=== PATIENT | male | born 1955 | race Caucasian/White ===

== ENCOUNTER → 2018-03-27 06:02 | Outpatient (CLI) | payer BC, SELFPAY ==
[2018-03-27 07:33] LABS: BUN 19 mg/dL (7-18); Creatinine, Serum 0.81 mg/dL (0.70-1.30); Glucose 97 mg/dL (74-106)
[2018-03-27 07:34] LABS: ALB/GLOB Ratio 0.9 RATIO (0.9-2.4); AST(SGOT) 16 U/L (15-37); Alanine Aminotransfer ALT/SGPT 33 U/L (16-61); Albumin, Serum 3.3 g/dL (3.2-5.0); Alkaline Phosphatase 74 U/L (45-117); Anion Gap 9 (5-15); BUN/Creat Ratio 23.4 RATIO (10-20); Calcium,Total 8.6 mg/dL (8.5-10.1); Chloride 104 mmol/L (98-107); Cholesterol 188 mg/dL (200); EST Glomerular Filtration Rate 102 mL/min (>60); Est Glom Filt Rate - Afr Amer 124 mL/min (>60); Globulin 3.8 g/dL (2.2-4.2); High Density Lipoprotein 40 mg/dL; Potassium 3.8 mmol/L (3.5-5.1); Protein, Total 7.1 g/dL (6.4-8.2); Sodium Level 141 mmol/L (136-145); T4 Free Direct 1.72 ng/dL (0.76-1.46); Thyroid Stim Hormone (TSH) 3.19 uIU/mL (0.358-3.74); Triglycerides 333 mg/dL; Very Low Density Lipoprotein 67 mg/dL (5-40)
== END ==
PROVIDERS: Family Provider Family Medicine; PCP Family Medicine; Visit Provider Family Medicine
DX: I10 Essential (primary) hypertension (principal); R94.6 Abnormal results of thyroid function studies
CPT/HCPCS: 36415; 80053; 80061; 84439; 84443

== ENCOUNTER → 2018-09-20 06:13 | Outpatient (CLI) | payer BC, SELFPAY ==
[2018-09-20 06:54] LABS: Absolute Lymphocyte Count 2.19 X10^3/ul (0.83-4.51); Basophil# 0.02 X10^3/uL; Basophil% 0.3 % (0-1); Eosinophil# 0.14 X10^3/uL; Eosinophils% 2.4 % (0-5); Hematocrit 39.6 % (40-54); Hemoglobin 12.6 g/dl (13.0-16.5); Lymphocyte # 2.19 X10^3/ul (4.0); Lymphocyte % 37.1 % (19-41); Mean Corp Hgb Conc 31.8 g/gl (32-36); Mean Corpuscular Hgb 28.8 pg (27.0-32.0); Mean Corpuscular Volume 90.4 fL (80-94); Mean Platelet Vol. 10.2 fl (6.2-12.0); Monocyte% 10.2 % (0-10); Neutrophil # 2.96 X10^3/uL (2.7-7.7); Platelet Count 209 K/mm3 (150-450); RBC Distribution Width SD 49.8 fl (35.1-43.9); Red Blood Count 4.38 M/mm3 (4.6-6.2); White Blood Count 5.9 K/mm3 (4.4-11.0)
[2018-09-20 06:56] LABS: POSITIVE COUNT NO; POSITIVE DIFFERENTIAL NO; POSITIVE MORPHOLOGY NO
[2018-09-20 07:12] LABS: Erythrocyte Sedimentation Rate 21 mm/hr (0-20)
[2018-09-20 07:30] LABS: ALB/GLOB Ratio 0.8 RATIO (0.9-2.4); AST(SGOT) 16 U/L (15-37); Alanine Aminotransfer ALT/SGPT 25 U/L (16-61); Alkaline Phosphatase 89 U/L (45-117); Anion Gap 5 (5-15); BUN 15 mg/dL (7-18); BUN/Creat Ratio 16.9 RATIO (10-20); Calcium,Total 8.5 mg/dL (8.5-10.1); Chloride 106 mmol/L (98-107); Creatinine, Serum 0.89 mg/dL (0.70-1.30); EST Glomerular Filtration Rate 92 mL/min (>60); Est Glom Filt Rate - Afr Amer 111 mL/min (>60); Free T3 3.1 pg/mL (2.18-3.98); Globulin 3.8 g/dL (2.2-4.2); Glucose 112 mg/dL (74-106); Potassium 3.9 mmol/L (3.5-5.1); Protein, Total 6.8 g/dL (6.4-8.2); Sodium Level 139 mmol/L (136-145); T4 Free Direct 1.78 ng/dL (0.76-1.46); Thyroid Stim Hormone (TSH) 3.73 uIU/mL (0.358-3.74)
--- NOTE | 2018-09-20 10:47 | STRESSREP_ITS ---
Stress Test Report Exercise myocardial perfusion stress test. 63-year-old man with a history of chest pain. Stress protocol: Resting EKG demonstrates normal sinus rhythm with a rate of 66 bpm normal intervals are noted. The patient exercised according to regular Livan protocol for total duration of 4 minutes. The maximum heart rate attained was 155 bpm which was 98% of maximum predicted heart rate the maximum workload was 5.8 metabolic equivalents. The patient maintained sinus rhythm throughout the recording. At rest there were no ST or T wave changes noted suggest ischemia peak exercise upsloping ST changes were noted which were less than 1 mm we did not be the criteria for ischemia. No chest pain was noted the test was terminated due to shortness of breath. The resting blood pressure 158/86 with a peak blood pressure 190/70 mmHg. Myocardial perfusion protocol. 15.0 mCi of technetium 99m sestamibi was injected at rest. The patient ex ercised according to regular Livan protocol for 4 minutes and at peak exercise 44.9 mCi of technetium 99m sestamibi was injected stress images were obtained stress and rest images were reconstructed and compared in the short axis vertical long and horizontal long axis. Gated images were also obtained Perfusion SPECT analysis: Review of the stress images demonstrate normal uptake of tracer noted in all areas of the myocardium. The resting images similarly demonstrate normal uptake of tracer noted in all areas of the myocardium. No obvious areas of reversibility are noted suggest ischemia no previous infarct is noted. Gated SPECT analysis: The gated ejection fraction is noted to be 62%. Conclusion: Normal exercise myocardial perfusion stress test at a low to moderate workload. Moderate functional aerobic impairment. The workload may affect sensitivity for detection of ischemia.
== END ==
PROVIDERS: Family Provider Family Medicine; PCP Family Medicine; Referring Provider Family Medicine; Visit Provider Family Medicine
DX: R07.9 Chest pain, unspecified (principal); R94.6 Abnormal results of thyroid function studies
CPT/HCPCS: 36415; 78452; 80053; 84439; 84443; 84445; 84481; 85025; 85652; 93017; A9500; A4216

== ENCOUNTER → 2018-10-03 16:25 | Outpatient (CLI) | payer BC, SELFPAY ==
[2018-10-05 11:45] LABS: Thyroid Peroxidase AB 9 IU/mL (0-34)
== END ==
PROVIDERS: Family Provider Family Medicine; PCP Family Medicine; Referring Provider Internal Medicine Endocrinology, Diabetes & Metabolism; Visit Provider Internal Medicine Endocrinology, Diabetes & Metabolism
DX: R94.6 Abnormal results of thyroid function studies (principal)
CPT/HCPCS: 86376

== ENCOUNTER → 2019-11-25 11:35 | Outpatient (CLI) | payer BC, SELFPAY ==
--- NOTE | 2019-11-25 11:40 | RAD_ITS ---
STUDY: X-RAY CHEST REASON FOR EXAM: Male, 64 years old. dyspnea on exertion TECHNIQUE: PA and lateral views of the chest. COMPARISON: None. FINDINGS: The lungs are clear and expanded. There is no demonstrated pleural abnormality. Normal size heart. Normal mediastinum and suzanne. Normal visualized pulmonary arteries. Normal visualized aortic arch and descending thoracic aorta. There are diffuse degenerative changes of the visualized thoracic spine. Normal visualized ribs, clavicles, and shoulders. There is no demonstrated abnormality of the visualized soft tissue structures of the upper abdomen. RAD/Chest PA and Lateral IMPRESSION: No acute cardiopulmonary process. Electronically Signed: Leland Keene MD (Brooks) at 8:07 EST , Service support ,
[2019-11-25 11:49] LABS: Bacteria 0 SEEN /hpf (None Seen); Mucous, Urine 0 SEEN /hpf (<or=2+); Red Blood Cells-Urine 0 SEEN /hpf (0-5); Squamous Epithelial Cells - UA 0 SEEN /hpf (0-5); White Blood Cells 0 SEEN /hpf (0-5)
[2019-11-25 14:07] LABS: Color, Urine Yellow (Yellow); Glucose, Dipstick Normal (Normal); Ketone-Dipstick Negative (Negative); Leukocyte Esterase-Dipstick Negative /ul (Negative); Nitrite-Dipstick Negative (Negative); Occult Blood-Urine Negative /ul (Negative); Protein-Dipstick Negative (Negative); Urine Bilirubin Dipstick Negative (Negative); Urine Clarity Sl. Cloudy (Clear); Urine Urobilinogen Normal (Normal)
[2019-11-25 14:08] LABS: Absolute Lymphocyte Count 1.64 X10^3/uL (0.83-4.51); Absolute Neutrophil Count 3.7 X10^3/uL (2.0-7.7); Basophil# 0.04 X10^3/uL; Basophil% 0.7 % (0-1); Eosinophil# 0.15 X10^3/uL; Eosinophils% 2.5 % (0-5); Hematocrit 41.8 % (40-54); Hemoglobin 13.7 g/dL (13.0-16.5); Lymphocyte # 1.64 X10^3/ul (4.0); Mean Corp Hgb Conc 32.8 g/dL (32-36); Mean Corpuscular Hgb 30.4 pg (27.0-32.0); Mean Corpuscular Volume 92.7 fL (80-94); Mean Platelet Vol. 9.9 fl (6.2-12.0); Monocyte% 8.2 % (0-10); NRBC Flagged by Analyzer 0 % (0-5); Neutrophil # 3.74 X10^3/uL (2.7-7.7); Neutrophil % 61.4 % (47-70); Platelet Count 220 K/mm3 (150-450); RBC Distribution Width CV 13.2 % (11.6-14.6); RBC Distribution Width SD 45.1 fl (35.1-43.9); Red Blood Count 4.51 M/mm3 (4.6-6.2); White Blood Count 6.1 K/mm3 (4.4-11.0)
[2019-11-25 14:41] LABS: ALB/GLOB Ratio 0.8 RATIO (0.9-2.4); AST(SGOT) 20 U/L (15-37); Alanine Aminotransfer ALT/SGPT 42 U/L (16-61); Albumin, Serum 3.3 g/dL (3.2-5.0); Alkaline Phosphatase 74 U/L (45-117); Anion Gap 4 (5-15); BUN 16 mg/dL (7-18); BUN/Creat Ratio 18.5 RATIO (10-20); Calcium,Total 9.1 mg/dL (8.5-10.1); Chloride 104 mmol/L (98-107); Creatinine, Serum 0.86 mg/dL (0.70-1.30); EST Glomerular Filtration Rate 95 mL/min (>60); Est Glom Filt Rate - Afr Amer 115 mL/min (>60); Glucose 97 mg/dL (74-106); Potassium 3.9 mmol/L (3.5-5.1); Protein, Total 7.3 g/dL (6.4-8.2); Sodium Level 136 mmol/L (136-145)
== END ==
PROVIDERS: Family Provider Family Medicine; PCP Family Medicine; Referring Provider Family Medicine; Visit Provider Family Medicine
DX: R06.09 Other forms of dyspnea (principal); R31.29 Other microscopic hematuria; I10 Essential (primary) hypertension
CPT/HCPCS: 36415; 71046; 80053; 81001; 84153; 85025; 87086; G0103

== ENCOUNTER 2020-07-30 19:00 | Emergency (ER) | payer BC, SELFPAY ==
[2020-07-30 19:01] VITALS: BP 152/81; PULSE 94; PULSE 96; RESP 18; RESP 19; TEMP 36.7; O2SAT 100; O2SAT 99; BMI 41.9
[2020-07-30 19:06] VITALS: O2SAT 98
[2020-07-30] MEDS: DiphenhydrAMINE 50 MG/ML Syringe 25 MG IV (19:37)
[2020-07-30] MEDS: MethylPREDNISolone 125 MG/2 ML Vial IV (19:37)
[2020-07-30] MEDS: Famotidine 200 MG/20 ML MDV 20 MG in 0.9% Normal Saline (Pres. free 8 ML 300 MG IV (19:42)
--- NOTE | 2020-07-30 20:04 | ED.VIS.GEN ---
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 He rapidly developed diffuse hives shortness of breath and facial swelling. EMS arrived and administered IV Benadryl and a EpiPen. Patient states he is improving. States that he has never had a reaction like this before and was stung earlier in the summer without significant reaction. <RaymondRoberto - Last Filed: 07/30/20 20:48> <Candi Zapata - Last Filed: 07/31/20 00:04> Chief Complaint: Shortness of Breath Past Medical History Smoking Status: Never smoker <Roberto Andrade - Last Filed: 07/30/20 20:48> <Candi Zapata - Last Filed: 07/31/20 00:04> - Allergies and Home Meds Allergies/Adverse Reactions: Allergies cefazolin [From [facility]] Allergy (Verified 07/30/20 19:06) Swelling Primary Care Physician: Bull Martinez MD [Primary Care Provider] - As Needed Review of Systems General: Denies: Chills, Fever, Sweats Eyes: Reports: -. Denies: Visual changes - bilaterally, Diplopia ENT: Reports: - - Facial and ear swelling. Denies: Rhinorrhea, Sore throat Cardiovascular: Denies: Chest pain, Palpitations Respiratory: Reports: Dyspnea. Denies: Cough, Dyspnea on exertion Gastrointestinal: Denies: Abdominal pain, Nausea, Vomiting, Diarrhea, Melena, Hematochezia Genitourinary: Denies: Dysuria, Hematuria, Frequency Musculoskeletal: Denies: Back pain, Extremity Pain Skin: Reports: - - Hives. Denies: Rash, Wounds Neurological: Denies: Headache, Weakness, Numbness <[place] Rays[place]Roberto - Last Filed: 07/30/20 20:48> Physical Exam Vital Signs/Narrative: Vital Signs Temp Pulse Resp BP Pulse Ox 07/30/20 19:01 98.1 F 96 19 H 152/81 H 99 Inital Vital Signs reviewed: Yes General: Well nourished, Well developed, No Acute Distress Head: Normocephalic, Atraumatic Eyes: Perrl, EOMI ENT: Moist mucous membranes, No rhinorrhea, - - Facial ear lower lip swelling Neck: Supple, Nontender Cardiovascular: Regular rate, Regular rhythm, No murmurs Respiratory: No distress, CTA bilaterally, Chest nontender Abdomen: Soft, Nontender, Nondistended, Normal bowel sounds Back: Nontender, Normal Inspection Extremities: Nontender, No edema Skin: Normal color, No rash, - - She has diffuse hives over his body. There appears to be a sting wound left upper posterior arm without a stinger. Similar wound on the hand on the left. Neurological: Alert, Oriented x3, Cranial nerves II-XII grossly intact, Normal Strength, Normal Sensation Psychological: Normal affect, Normal Mood <Roberto Andrade - Last Filed: 07/30/20 20:48> Vital Signs/Narrative: Vital Signs Pulse Resp BP Pulse Ox 07/30/20 23:10 85 16 168/97 H 95 07/30/20 20:30 84 16 141/84 H 95 <Candi Zapata - Last Filed: 07/31/20 00:04> Diagnostic/Tx/Re-eval - Medical Decision Making Patient had already received epinephrine and Benadryl. He received additional dose of Benadryl, Solu-Medrol, and Pepcid. He was observed. Care of the patient will be signed to the oncoming physician. If the patient continues to do well he will be discharged home with prescription for EpiPen and prednisone with instructions to take additional Benadryl and Pepcid. <Roberto Andrade - Last Filed: 07/30/20 20:48> - Medical Decision Making Patient was signed out to me pending repeat evaluation at midnight. At this time patient is alert sitting on the side the bed. Edema is improved. Patient has no respiratory complaints. He will be discharged as per Dr. Bajwa's instructions. <Candi Zapata - Last Filed: 07/31/20 00:04> ED Disposition <Roberto Andrade - Last Filed: 07/30/20 20:48> <Candi Zapata - Last Filed: 07/31/20 00:04> - Plan for ED Patient: Disposition: Home or Assisted Living Diagnosis: Bee sting-induced anaphylaxis Prescriptions: Prednisone [Deltasone] 60 mg PO DAILY #12 tab Prescription Printed Epinephrine [Epipen] 0.3 mg IJ X1 PRN #2 auto.injct PRN Reason: Anaphylaxis Prescription Printed Referrals: Bull Martinez MD [Primary Care Provider] - As Needed Additional Instructions: You have received a prescription for epinephrine if you would have another anaphylactic reaction. Please take at least 25 mg of Benadryl every 6 hours for the next 3 days. I would also recommend taking Pepcid 20 mg twice a day for the next 3 days. You have also received a prescription for prednisone.
[2020-07-30 20:30] VITALS: BP 141/84; PULSE 84; RESP 16; O2SAT 95
[2020-07-30 23:10] VITALS: BP 168/97; PULSE 85; RESP 16; O2SAT 95
[2020-07-31 00:07] VITALS: BP 172/93; PULSE 84; RESP 16; O2SAT 94
== END 2020-07-31 00:11 | disposition home or self-care (01) ==
PROVIDERS: Emergency Provider Emergency Medicine; PCP Family Medicine
DX: T63.441A Toxic effect of venom of bees, accidental (unintentional), initial encounter (principal); T78.2XXA Anaphylactic shock, unspecified, initial encounter; Y92.9 Unspecified place or not applicable
CPT/HCPCS: 96374; 96375; 99285; A4216; J3490

== ENCOUNTER → 2020-11-09 09:17 | Outpatient (CLI) | payer BC, SELFPAY ==
--- NOTE | 2020-11-09 09:20 | RAD_ITS ---
STUDY: X-RAY CHEST REASON FOR EXAM: Male, 65 years old patient with chronic cough TECHNIQUE: PA and lateral views of the chest. COMPARISON: 11/25/2019. FINDINGS: The lungs are hyperexpanded. There are prominent bronchovascular markings in both lungs. There is no demonstrated pleural abnormality. There is borderline cardiomegaly. Normal mediastinum and suzanne. There is prominence of the pulmonary hilar arteries without peripheral pulmonary vascular congestion, suggesting pulmonary hypertension. Normal visualized aortic arch and descending thoracic aorta. There are diffuse degenerative changes of the visualized thoracic spine. Normal visualized ribs, clavicles, and shoulders. There is no demonstrated abnormality of the visualized soft tissue structures of the upper abdomen. RAD/Chest PA and Lateral IMPRESSION: No radiographic evidence of acute cardiopulmonary disease. Electronically Signed: Patti Diaz MD at 4:03 EST , Service support ,
[2020-11-10 07:31] LABS: SARS-COV-2 TOTAL ABS Nonreactive (Nonreactive)
== END ==
PROVIDERS: PCP Family Medicine; Referring Provider Family Medicine; Visit Provider Family Medicine
DX: J45.909 Unspecified asthma, uncomplicated (principal); Z20.828 Contact with and (suspected) exposure to other viral communicable diseases
CPT/HCPCS: 36415; 71046; 86769

== ENCOUNTER → 2021-01-26 13:01 | Outpatient (CLI) | payer MEDICARE, BC, SELFPAY ==
[2021-01-18 13:38] VITALS: BMI 41.9
== END ==
PROVIDERS: PCP Family Medicine; Visit Provider Internal Medicine Critical Care Medicine
DX: Z46.89 Encounter for fitting and adjustment of other specified devices (principal)

== ENCOUNTER → 2021-02-01 08:45 | Outpatient (CLI) | payer MEDICARE, BC, SELFPAY ==
[2021-01-18 13:38] VITALS: BMI 41.9
--- NOTE | 2021-02-01 13:16 | PFTCOMP ---
COMPLETE PULMONARY FUNCTION TEST INTERPRETATION Brief HPI: Patient is a 66 year old male, currently under the care of to Dr. Hutchison, who presents to [facility] for complete pulmonary function tests secondary to diagnosis of asthma. Respiratory therapist reports good effort and reproducible results. Interpretation: Forced expiration spirometry shows a moderately severe large airways obstructive ventilatory defect with an FEV1 of 51% predicted. There is no significant bronchodilator response by strict ATS criteria. Spirograms are of good quality and plateau slowly, indicating slowly emptying areas of the lungs. The respiratory flow volume loop shows decreased expiratory flow rates at all lung volumes consistent with airway obstruction. Lung volumes by body plethysmography show a normal total lung capacity at 7.83 L, 107% predicted. FRC and RV are elevated out of proportion. Lung volume measurements are consistent with air-trapping. Diffusion capacity by carbon monoxide is normal at 84% predicted. The airway resistance is elevated. No previous pulmonary function tests were available for review. Impression: Irreversible moderately severe large airways obstructive ventilatory defect resulting in air trapping
== END ==
PROVIDERS: PCP Family Medicine; Referring Provider Internal Medicine Critical Care Medicine; Visit Provider Internal Medicine Critical Care Medicine
DX: J45.909 Unspecified asthma, uncomplicated (principal)
CPT/HCPCS: 94060; 94726; 94729

== ENCOUNTER → 2021-02-03 12:43 | Outpatient (CLI) | payer MEDICARE, BC, SELFPAY ==
[2021-01-18 13:38] VITALS: BMI 41.9
[2021-02-03 13:09] VITALS: PULSE 103; PULSE 108; PULSE 110; PULSE 112; PULSE 113; PULSE 87; PULSE 97; O2SAT 91; O2SAT 93; O2SAT 94; O2SAT 95
--- NOTE | 2021-02-04 05:47 | PCM.PSN.6M ---
PSN 6 Minute Walk Test - 6 Minute Walk Test 6 Minute Walk Test: 6 Minute Walk Test PSN:6-Minute Walk Test Start: 02/03/21 13:09 Freq: Status: Active Protocol: RESP.6MINW Document 02/03/21 13:09 [facility] (Rec: 02/03/21 13:12 [facility] [id number]) 6 Minute Walk Test Date Performed 02/03/21 Time Performed 12:45 Height 6 ft 1 in Weight: 136.078 kg Weight in Pounds 300.[address]: Dr Hutchison Assistive device used: None Pre-test Oxygen Delivery Method Room Air Pulse Ox (%) 94 Pulse Rate (60-100 beats/min) 87 Dyspnea Christian Scale (0-10) 0 Exertion Christian Scale (6-20) 6 1st minute Oxygen Delivery Method Room Air Pulse Ox (%) 93 Pulse Rate (60-100 beats/min) 108 H 2nd minute Oxygen Delivery Method Room Air Pulse Ox (%) 91 Pulse Rate (60-100 beats/min) 110 H 3rd minute Oxygen Delivery Method Room Air Pulse Ox (%) 91 Pulse Rate (60-100 beats/min) 113 H 4th minute Oxygen Delivery Method Room Air Pulse Ox (%) 91 Pulse Rate (60-100 beats/min) 112 H 5th minute Oxygen Delivery Method Room Air Pulse Ox (%) 91 Pulse Rate (60-100 beats/min) 103 H 6th minute Oxygen Delivery Method Room Air Pulse Ox (%) 91 Pulse Rate (60-100 beats/min) 112 H Dyspnea Christian Scale (0-10) 1 Exertion Christian Scale (6-20) 11 Post-test Oxygen Delivery Method Room Air Pulse Ox (%) 95 Pulse Rate (60-100 beats/min) 97 Full Laps Walked 20 Partial Lap, Number of Tiles Walked 52 Total Distance Walked (ft) 1232 - Interpretation Interpretation: The patient was able to ambulate 1232 feet over the course of 6 minutes on room air with no assistive devices or breaks. The patient did desaturate as low as 91% and had significant tachycardia as high as 113 bpm. These findings are consistent with a cardiopulmonary limitation to exercise tolerance. - Recommendations Recommendations: No supplemental oxygen is indicated at this time. However, patient will need to be followed closely given level of desaturation.
== END ==
PROVIDERS: PCP Family Medicine; Referring Provider Internal Medicine Critical Care Medicine; Visit Provider Internal Medicine Critical Care Medicine
DX: J45.909 Unspecified asthma, uncomplicated (principal)
CPT/HCPCS: 94618

== ENCOUNTER → 2021-02-08 11:48 | Outpatient (CLI) | payer MEDICARE, BC, SELFPAY ==
[2021-01-18 13:38] VITALS: BMI 41.9
[2021-02-08 15:27] LABS: ALB/GLOB Ratio 0.9 RATIO (0.9-2.4); AST(SGOT) 31 U/L (15-37); Alanine Aminotransfer ALT/SGPT 56 U/L (16-61); Albumin, Serum 3.5 g/dL (3.2-5.0); Alkaline Phosphatase 72 U/L (45-117); Anion Gap 5 (5-15); BUN 15 mg/dL (7-18); Chloride 99 mmol/L (98-107); Cholesterol 229 mg/dL (200); Creatinine, Serum 0.88 mg/dL (0.70-1.30); EST Glomerular Filtration Rate 92 mL/min (>60); Est Glom Filt Rate - Afr Amer 112 mL/min (>60); Globulin 3.9 g/dL (2.2-4.2); Glucose 106 mg/dL (74-106); High Density Lipoprotein 72 mg/dL; Potassium 3.8 mmol/L (3.5-5.1); Protein, Total 7.4 g/dL (6.4-8.2); Sodium Level 135 mmol/L (136-145); Triglycerides 200 mg/dL; Very Low Density Lipoprotein 40 mg/dL (5-40)
== END ==
PROVIDERS: PCP Family Medicine; Visit Provider Family Medicine
DX: I10 Essential (primary) hypertension (principal); N40.0 Benign prostatic hyperplasia without lower urinary tract symptoms; Z12.5 Encounter for screening for malignant neoplasm of prostate
CPT/HCPCS: 36415; 80053; 80061; 84153; G0103

== ENCOUNTER → 2021-02-23 08:00 | Outpatient (CLI) | payer MEDICARE, BC, SELFPAY ==
[2021-01-18 13:38] VITALS: BMI 41.9
[2021-02-21 08:50] VITALS: BMI 42.2
--- NOTE | 2021-02-23 08:07 | AAAS_ITS ---
Reason For Study: Screening Aorta Measurements Aorta Doppler Measurements Proximal aorta measures2.09 x 2.06cm. in cross- Peak systolic flow velocities within the proximal sectional axis. aorta measure 131.1 cm/sec. Proximal aorta measures2.08cm. in longitudinal Peak systolic flow velocities within the mid aorta axis. measure 113 cm/sec. Mid aorta measures2.02 x 1.97cm. in cross- Peak systolic flow velocities within the distal sectional axis. aorta measure 144 cm/sec. Mid aorta measures2.03cm. in longitudinal axis. Distal aorta measures1.60 x 1.62cm. in cross- sectional axis. Distal aorta measures1.61cm. in longitudinal axis. Left Iliac Artery Left iliac artery measures 1.38 x 1.39 cm. in the cross-sectional axis. Left iliac artery measures 1.39 cm. in the longitudinal axis. Peak systolic velocity in the left iliac artery measures 149.1 cm/sec. Right Iliac Artery Right iliac artery measures 1.36 x 1.34 cm. in the cross-sectional axis. Right iliac artery measures 1.34 cm. in the longitudinal axis. Peak systolic velocity in the right iliac artery measures 112.9 cm/sec. Procedure Aorta IVC Iliac vasculature or bypass grafts 25084. Exam performed in department. VL/AAA Screening Interpretation Summary The dimensions of the intra-abdominal aorta are normal, without evidence of ane urysmal dilatation. The iliac arteries are also normal in size bilaterally. The intra-abdominal aor ta and iliac arteries are patent, demonstrating normal, pulsatile arterial flow and normal peak systo lic velocities. Ordering Physician: Bull Martinez Referring Physician: Bull Martinez Performed By: Cecelia Rasmussen RVT
== END ==
PROVIDERS: PCP Family Medicine; Referring Provider Family Medicine; Visit Provider Family Medicine
DX: Z00.00 Encounter for general adult medical examination without abnormal findings (principal); Z13.6 Encounter for screening for cardiovascular disorders
CPT/HCPCS: 76706

== ENCOUNTER → 2021-03-18 | Outpatient (CLI) | payer MEDICARE, BC, SELFPAY ==
[2021-02-21 08:50] VITALS: BMI 42.2
--- NOTE | 2021-03-17 | IMM_PTH ---
PATIENT: SHARA GA LOC: [facility] U#:[id number] AGE/SX: 66/M ROOM: RE03/18/[address]: Dr. Vincenzo Garcia MD : 1955 BED: DIS: 03/18/2021 SPEC #: [id number] RECD: 03/21/21 11:43 STATUS: SOURajendra REQ #: [id number] RAGINI: 03/17/21 00:[address]: Vincenzo Garcia DEPT: IMMUNOHISTOCHEMISTRY RECD BY: Yu Foley ENTERED: 03/21/21 11:45 SP TYPE: IMMUNO OTHR DR: Dr. Jignesh Martinez MD Tissues: A - PROSTATE RIGHT B - PROSTATE RIGHT C - PROSTATE RIGHT D - PROSTATE LEFT E - PROSTATE LEFT F - PROSTATE LEFT Procedures: 34BE12 (add) P40 (add) 34BE12 (initial) Comments: @ Specimen number changed from [id number] to [id number] @ on 03/21/21 at 1157 by RGOOD. PHYSICIAN & [address] [address] SPECIMEN INFORMATION: Tissue Source: A - Right apex, B - Right mid, C - Right base, D - Left apex, E - Left mid, F - Left base Clinical Info: R97.20 Specimen Number: [id number] CPT code: 78597, 72218 x11 METHODOLOGY: Deparaffinized sections of prefer/formalin-fixed tissue or PAP/DQ stained slides are incubated with monoclonal/polyclonal antibodies/oligonucleotide probes. Localization is made via biotin free immunoperoxidase method. Appropriate controls are performed and reacted as expected. Results on target cell population are indicated in the following table: RESULTS: ANTIBODY / CLONE RESULT Block A 34BE12 (34BE12) negative P40 (BC28) negative Block B 34BE12 (34BE12) negative P40 (BC28) negative Block C 34BE12 (34BE12) negative P40 (BC28) negative Block D 34BE12 (34BE12) negative P40 (BC28) negative Block E 34BE12 (34BE12) negative P40 (BC28) negative Block F 34BE12 (34BE12) negative P40 (BC28) negative These tests were developed and their performance characteristics determined by [facility]. They may not have been cleared or approved by the U.S. Food and Drug Administration. The FDA has determined that such clearance or approval is not necessary. The above immunohistochemical/dualISH markers are ordered and reviewed by the Pathologist. INTERPRETATION: A. Right prostate, apex, core biopsy: Adenocarcinoma. B. Right prostate, mid, core biopsy: Focal atypical small acinar proliferation (LIANET) C. Right prostate, base, core biopsy: Adenocarcinoma. D. Left prostate, apex, core biopsy: Adenocarcinoma. E. Left prostate, mid, core biopsy: Adenocarcinoma. F. Left prostate, base, core biopsy: Adenocarcinoma. SJ:wilber 03/24/2021
--- NOTE | 2021-03-17 16:30 | PROSBIL_PTH ---
PATIENT: SHARA GA LOC: [facility] U#:[id number] AGE/SX: 66/M ROOM: RE03/18/[address]: Dr. Vincenzo Garcia MD : 1955 BED: DIS: 03/18/2021 SPEC #: [id number] RECD: 03/17/21 16:48 STATUS: MADELIN REGianna #: [id number] RAGINI: 03/17/21 16:[address]: Vincenzo Garcia DEPT: SURGICAL PATHOLOGY RECD BY: Libby Washington ENTERED: 03/18/21 09:04 SP TYPE: PROST BX WILLIAM DR: Dr. Jignesh Martinez MD Tissues: A - PROSTATE RIGHT B - PROSTATE RIGHT C - PROSTATE RIGHT D - PROSTATE LEFT E - PROSTATE LEFT F - PROSTATE LEFT Procedures: PROSTATE BX HEADER OPERATION: Prostate biopsy PRE-OP DIAGNOSIS: R97.20 TISSUE SUBMITTED: A - Right apex, B - Right mid, C - Right base, D - Left apex, E - Left mid, F - Left base MICROSCOPIC DIAGNOSIS A. Right prostate, apex, core biopsy: Prostatic adenocarcinoma. Dallas grade: 3+3=6 Number of cores involved: 1/2 Proportion of tissue involved: 10-15% Perineural invasion: Not identified. Greatest tumor length: 0.8 cm, discontinuous See comment. B. Right prostate, mid, core biopsy: Focal atypical small acinar proliferation (LIANET). See comment. C. Right prostate, base, core biopsy: Prostatic adenocarcinoma. Maurisio grade: 3+3=6 Number of cores involved: 1/2 Proportion of tissue involved: <5% Perineural invasion: Not identified. Greatest tumor length: <0.1 cm See comment. D. Left prostate, apex, core biopsy: Prostatic adenocarcinoma. Dallas grade: 3+3=6 Number of cores involved: 2/2 Proportion of tissue involved: <5% Perineural invasion: Not identified. Greatest tumor length: 0.1 cm See comment. E. Left prostate, mid, core biopsy: Prostatic adenocarcinoma. Maurisio grade: 3+3=6 Number of cores involved: 2/2 Proportion of tissue involved: 5-10% Perineural invasion: Not identified. Greatest tumor length: 0.2 cm See comment. F. Left prostate, base, core biopsy: Prostatic adenocarcinoma. Dallas grade: 3+3=6 Number of cores involved: 2/2 Proportion of tissue involved: ~5% Perineural invasion: Present, focal. Greatest tumor length: 0.1 cm Focal high-grade prostatic intraepithelial neoplasia (HGPIN). See comment. SJ:wilber 03/21/2021 COMMENT A-F. Immunohistochemistry ([id number]) supports the above diagnosis. Case has been reviewed in consultation with Dr. Osorio who concurs with the above diagnosis. IDC:AM MICROSCOPIC DESCRIPTION Slides are reviewed. GROSS DESCRIPTION A - Received is one container designated prostate, right apex. The specimen consists of two elongated fragments of light munoz-white soft tissue each measuring 1.2 cm in length and 0.1 cm in diameter. The specimen is totally submitted in one cassette. B - Received is one container designated prostate, right mid. The specimen consists of two elongated fragments of light munoz-white soft tissue each measuring 0.5 cm in length and 0.1 cm in diameter. The specimen is totally submitted in one cassette. C - Received is one container designated prostate, right base. The specimen consists of two elongated fragments of light munoz-white soft tissue measuring 0.8 and 1.2 cm in length and 0.1 cm in diameter. The specimen is totally submitted in one cassette. D - Received is one container designated prostate, left apex. The specimen consists of two elongated fragments of light munoz-white soft tissue each measuring 1.2 cm in length and 0.1 cm in diameter. The specimen is totally submitted in one cassette. E - Received is one container designated prostate, left mid. The specimen consists of two elongated fragments of light munoz-white soft tissue each measuring 1.3 cm in length and 0.1 cm in diameter. The specimen is totally submitted in one cassette. F - Received is one container designated prostate, left base. The specimen consists of two elongated fragments of light munoz-white soft tissue each measuring 1.1 cm in length and 0.1 cm in diameter. The specimen is totally submitted in one cassette. / SJ:rg 03/18/21 TC:0 [facility]: [id number]
== END | disposition home or self-care (01) ==
LOC: LABSPEC 08:14
PROVIDERS: PCP Family Medicine; Visit Provider Urology
DX: R97.20 Elevated prostate specific antigen [PSA] (principal)
CPT/HCPCS: 88305; 88341; 88342; G0416

== ENCOUNTER 2021-04-29 06:30 | Day surgery (SDC) | payer MEDICARE, BC, SELFPAY ==
[2021-02-21 08:50] VITALS: BMI 42.2
[2021-04-29] MEDS: Lactated Ringers 1,000 ML 100 ML IV (06:50)
[2021-04-29 07:08] VITALS: BP 146/89; PULSE 73; RESP 16; TEMP 36.3; O2SAT 95; BMI 41.3
[2021-04-29 07:25] LABS: Bedside Glucose 120 mg/dL (70-110)
[2021-04-29] MEDS: Ciprofloxacin 400 MG/200 ML BAG 200 MG IV (07:48)
--- NOTE | 2021-04-29 08:08 | HP.PCM_ITS ---
HPI - General HPI Narrative SHARA GA, is a 66 M who presents for placement of gold markers and spacer gel matrix. [facility] Medical History (Updated 04/29/21 @ 08:[address] Vincenzo Garcia MD) Alcohol use Asthma Back pain Cancer CPAP (continuous positive airway pressure) dependence Diabetes Gastric reflux GERD (gastroesophageal reflux disease) High cholesterol History of edema History of hiatal hernia History of steroid therapy History of stress test HTN (hypertension) Hx of echocardiogram Injury of head and neck Loss of hearing Non-smoker LACIE (obstructive sleep apnea) Prostate disease Shortness of breath on exertion Home Medications lisinopril-hydrochlorothiazide 1 ea PO DAILY 11/01/16 [History Last Taken Unknown] epinephrine 0.3 mg IJ X1 PRN #2 auto.injct 07/30/20 [Rx Last Taken Unknown] albuterol sulfate 90 mcg/actuation aerosol inhaler 2 puff INHALATION Q6H PRN 12/28/20 [History Last Taken 04/29/21 05:00 2 PUFF] pantoprazole 20 mg tablet,delayed release 20 mg PO DAILY 12/28/20 [History Last Taken 04/29/21 05:00 20 MG] fluticasone 500 mcg-salmeterol 50 mcg/dose blistr powdr for inhalation 1 inh INHALATION BID #60 ea 04/07/21 [Rx Last Taken Unknown] Enzyme 365 1 cap PO/SL DAILY 04/21/21 [History Last Taken Unknown] amlodipine 5 mg PO DAILY 04/21/21 [History Last Taken 04/29/21 05:00 5 mg] tamsulosin 0.4 mg PO QHS 04/21/21 [History Last Taken Unknown] ciprofloxacin HCl [Cipro] 500 mg PO BID #14 tab 04/29/21 [Rx Last Taken Unknown] Allergy/AdvReac Type Severity Reaction Status Date / Time cefazolin [From [facility]] Allergy Swelling Verified 04/21/21 11:41 Family History Father Pulmonary emphysema Mother Pulmonary emphysema Surgical History (Updated 04/21/21 @ 11:55 by Ludy Payton) H/O knee surgery H/O shoulder surgery Hx of Achilles tendon repair Social History (Updated 02/21/21 @ 15:03 by Stacia Smith OPERATIONS ADVISOR, OPERATIONS ADVISOR-C) Smoking Status: Never smoker Vital Signs Vital Signs Vital Signs: 04/29/21 07:08 Temperature 97.4 F L Temperature Source Temporal Pulse Rate 73 Respiratory Rate 16 Respiratory Pattern Normal Blood Pressure 146/89 H Blood Pressure Mean 108 Blood Pressure Source Monitor Blood Pressure Position Sitting Blood Pressure Location Right Arm Pulse Ox 95 Oxygen Delivery Method Room Air Weight Weight: 142.1 kg Body Mass Index (BMI) 41.3 Physical Exam Const alert and oriented x3 General Appearance: cooperative HEENT normocephalic, head/scalp atraumatic, EAC's normal and TM's normal bilaterally Eyes PERRL and EOMs intact bilaterally Pupil: sluggish Neck no lymphadenopathy, supple and no JVD General: trachea midline Lymph Lymphatic: no lymphadenopathy noted, lymphedema and lymphadenopathy Resp normal respiratory effort, normal air movement and clear to auscultation bilaterally Cardio regular rate, regular rhythm and peripheral pulses 2+ throughout GI soft to palpation, non-tender and non-distended Extremity normal capillary refill and no clubbing, cyanosis or edema General Extremity: no tenderness to palpation of joints or extremities Skin no rashes or lesions noted General Skin Exam: turgor normal Lesions: no lesions Rashes: no rashes Neuro CN's II-XII intact bilaterally Speech: speech normal Motor Exam: strength 5/5 throughout; Negative for general weakness Psych thought process normal, cooperative and affect normal Appearance: appropriate Results Lab / Micro Data Labs: Laboratory Results - last 24 hr 04/29/21 07:16 POC Glucose 120 H Assessment & Plan Assessment/Plan (1) Prostate cancer: PLAN: Plan to place spacer markers and spacer organ gel matrix for prostate cancer treatment.
--- NOTE | 2021-04-29 08:08 | PCM.DC ---
Discharge Instructions Diet Discharge Diet: No restrictions Dressing / Incision Call your doctor if your incision/area has: Continuous Slow Oozing, Increased Pain/ Swelling, Increased Redness and Foul Smelling Discharge Call your doctor if you observe: Fever of 101 or Higher, Numbness or Tingling, Shortness of breath, Dizziness, Calf discomfort and Uncontrolled pain Follow Up Care Please Follow Up With: Vincenzo Garcia MD Test Results: Test results from this visit will be discussed in further detail at your follow-up appointment, if applicable. Discharge Plan Admission Primary Reason for Your Visit: gold markers and spacer gel Attending Provider: Vincenzo Garcia Primary Care Provider: Bull Martinez Discharge Orders/Prescriptions Prescriptions: New ciprofloxacin HCl [Cipro] 500 mg tablet 500 mg PO BID Qty: 14 RF: 0 Continued pantoprazole [Protonix] 20 mg tablet,delayed release (DR/EC) 20 mg PO DAILY RF: 0 albuterol sulfate 90 mcg/actuation HFA aerosol inhaler 2 puff INHALATION Q6H PRN (Reason: SOB) RF: 0 fluticasone propion-salmeterol [Wixela Inhub] 500-50 mcg/dose blister with device 1 inh inhalation BID Qty: 60 RF: 3 lisinopril-hydrochlorothiazide 1 EACH tablet 1 ea PO DAILY RF: 0 epinephrine 0.3 MG/0.3 ML auto-injector 0.3 mg IJ X1 PRN (Reason: Anaphylaxis) Qty: 2 RF: 0 amlodipine 5 mg Tablet 5 mg PO DAILY RF: 0 tamsulosin 0.4 mg Capsule 0.4 mg PO QHS RF: 0 Enzyme 365 1 cap PO/SL DAILY RF: 0 Referrals / Follow Up: Bull Martinez MD [Primary Care Provider] - Vincenzo Garcia MD [STAFF PHYSICIAN] - Disposition Discharge Orders: Discharge Patient (Routine); Ordered 04/29/21 Ordered By: Dr. Vincenzo Garcia
--- NOTE | 2021-04-29 08:34 | PCM.OPRPT ---
Report of Operation Date of Procedure: 04/29/21 Pre-Operative Diagnosis: prostate cancer Post-Operative Diagnosis: same Surgery/Procedure Performed:: placement of gold markers , and placement of spacer gel matrix Description of Surgical Findings:: Patient was taken back to the operating room, after induction of anesthesia, he was placed in dorsolithotomy position. The patient had a bowel prep preoperatively. He was given IV antibiotics preoperatively. He underwent a timeout procedure. He was marked and the procedure was reviewed with the operating room staff. Once he was in dorsolithotomy position. The genitals and perineum were prepped and draped in the usual sterile fashion. I then introduced a biplanar ultrasound probe into the rectum and performed ultrasonography on the prostate. The prostate seminal vesicles, the base, the mid prostate, the apex were identified. The Denonvilliers' fascia was also identified. I first advanced the first marker in the patient's right side to the mid prostate and deployed the first documentation nurse. The second documentation nurse was then advanced under ultrasound guidance to the patient's left mid prostate . And finally the third documentation nurse was advanced of the prostate left apex and deployed under ultrasound guidance. All 3 markers were confirmed to be present within the prostate on ultrasonography. second procedure; The genitals and perineum were prepped and draped in usual sterile fashion. I then introduced a biplanar ultrasound probe into the rectum and performed ultrasonography and identified the Denonvilliers' fascia the prostate mid base and apex and seminal vesicles. The spacer gel mix was then prepared on the back table per manufactures instruction. Under ultrasound guidance in the midline perineum a bevel needle down we advanced through the perineum below the prostate into the space of Denonvilliers' fascia. This space which could be identified by ultrasound with a bright white layer between the prostate and the rectum. I then injected a puff of normal saline to identify the space further. After I confirmed that the needle was in the correct space in the mid prostate and the space of Denonvilliers' fascia between the rectum and the prostate. Then over the course of 15 seconds the gel matrix was injected slowly there was nice separation between the prostate and the rectum at the gel matrix was injected. The position of the gel matrix was confirmed by ultrasound. Then the injection needle was removed intact. Patient's perineum was cleaned patient was taken out of stirrups and then taken back to the PACU in good condition. Surgeon: Jose Type of Anesthesia: General Admit VTE Documentation VTE Present on Admission: No VTE Mechan Device Prophylaxis: SCD's
[2021-04-29 08:45] VITALS: BP 139/94; BP 146/89; PULSE 80; RESP 16; TEMP 36.2; O2SAT 94
[2021-04-29 09:00] VITALS: BP 139/89; BP 146/89; PULSE 75; RESP 16; O2SAT 94
[2021-04-29 09:15] VITALS: BP 137/91; BP 146/89; PULSE 70; RESP 16; TEMP 36.5; O2SAT 94
[2021-04-29 09:15] LABS: Bedside Glucose 130 mg/dL (70-110)
[2021-04-29 10:00] VITALS: BP 143/85; BP 146/89; PULSE 72; RESP 16; TEMP 36.7; O2SAT 97
== END 2021-04-29 10:09 ==
LOC: SDC 06:31 → AC 06:32
PROVIDERS: PCP Family Medicine; Referring Provider Urology; Visit Provider Urology
PROC: (CPT 55874; principal; 2021-04-29 08:10)
DX: C61 Malignant neoplasm of prostate (principal); K21.9 Gastro-esophageal reflux disease without esophagitis; G47.33 Obstructive sleep apnea (adult) (pediatric); I10 Essential (primary) hypertension; E11.9 Type 2 diabetes mellitus without complications; E78.00 Pure hypercholesterolemia, unspecified
CPT/HCPCS: 00902; 55876; 82962; J7120; J0744; J2405

== ENCOUNTER → 2021-05-12 14:34 | Outpatient (CLI) | payer MEDICARE, BC, SELFPAY ==
[2021-04-29 07:08] VITALS: BMI 41.3
[2021-05-12 16:40] LABS: Absolute Lymphocyte Count 1.67 X10^3/uL (0.83-4.51); Absolute Neutrophil Count 3.8 X10^3/uL (2.0-7.7); Basophil# 0.04 X10^3/uL; Basophil% 0.6 % (0-1); Eosinophil# 0.09 X10^3/uL; Eosinophils% 1.4 % (0-5); Hematocrit 41.3 % (40-54); Hemoglobin 13.8 g/dL (13.0-16.5); Lymphocyte # 1.67 X10^3/ul (0.83-4.51); Lymphocyte % 26.7 % (19-41); Mean Corp Hgb Conc 33.4 g/dL (32-36); Mean Corpuscular Hgb 31.4 pg (27.0-32.0); Mean Corpuscular Volume 93.9 fL (80-94); Mean Platelet Vol. 9.4 fl (6.2-12.0); Monocyte# 0.62 X10^3/uL; Monocyte% 9.9 % (0-10); NRBC Flagged by Analyzer 0 % (0-5); Neutrophil # 3.82 X10^3/uL (2.7-7.7); Neutrophil % 61.1 % (47-70); Platelet Count 260 K/mm3 (150-450); RBC Distribution Width CV 13.4 % (11.6-14.6); RBC Distribution Width SD 46.5 fl (35.1-43.9); White Blood Count 6.3 K/mm3 (4.4-11.0)
[2021-05-12 17:02] LABS: Creatinine, Serum 0.83 mg/dL (0.70-1.30); EST Glomerular Filtration Rate 99 mL/min (>60); Est Glom Filt Rate - Afr Amer 120 mL/min (>60)
== END ==
PROVIDERS: PCP Family Medicine; Referring Provider Radiology Radiation Oncology; Visit Provider Radiology Radiation Oncology
DX: Z01.818 Encounter for other preprocedural examination (principal); C61 Malignant neoplasm of prostate
CPT/HCPCS: 36415; 82565; 84153; 85025

== ENCOUNTER → 2021-05-13 13:56 | Outpatient (CLI) | payer MEDICARE, BC, SELFPAY ==
[2021-02-21 08:50] VITALS: BMI 42.2
[2021-04-29 07:08] VITALS: BMI 41.3
--- NOTE | 2021-05-13 13:59 | CT_ITS ---
STUDY: CT PELVIS WITH CONTRAST REASON FOR EXAM: Male, 66 years old. PROSTATE CA. Radiation treatment planning examination. RADIATION DOSAGE (If Supplied By Facility): CTDIvol = ( 29.14 ) mGy, DLP = ( 910.55 ) mGycm TECHNIQUE: Transaxial imaging of the pelvis was performed without oral contrast. 100 ML ISOVUE 300 was administered intravenously. Individualized dose optimization techniques were used for this CT. COMPARISON: None. FINDINGS: Normal urinary bladder. The prostate measures 4.4 cm x 4.4 cm. Central calcifications are seen. Metallic radiation seeds are seen within the prostate. The urethra is unremarkable. Normal visualized small intestine. There are multiple colonic diverticula of the sigmoid colon consistent with chronic diverticulosis. There is no pelvic fluid. There is no pelvic lymphadenopathy or mass lesion. There is diffuse atherosclerotic calcification of the pelvic arteries. Small umbilical hernia containing fat. Small bilateral inguinal hernias containing fat. There are diffuse degenerative changes of the visualized lumbar spine and sacroiliac joints. CT/Pelvis WITH IV Contrast IMPRESSION: Metallic radiation seeds are seen within the prostate. Electronically Signed: Jose Ahuja MD at 11:09 EDT , Service support ,
[2021-05-13 14:21] LABS: CREATININE FINGERSTICK 0.9 mg/dL (0.70-1.30); EGFR FINGERSTICK > 60.0000 mL/min (>60)
== END ==
PROVIDERS: PCP Family Medicine; Referring Provider Radiology Radiation Oncology; Visit Provider Radiology Radiation Oncology
DX: C61 Malignant neoplasm of prostate (principal)
CPT/HCPCS: 72193; Q9967

== ENCOUNTER → 2021-06-01 09:40 | Outpatient (CLI) | payer MEDICARE, BC, SELFPAY ==
[2021-06-01 12:15] LABS: Absolute Lymphocyte Count 0.75 X10^3/uL (0.83-4.51); Absolute Neutrophil Count 3.3 X10^3/uL (2.0-7.7); Basophil# 0.03 X10^3/uL; Basophil% 0.6 % (0-1); Eosinophils% 2.2 % (0-5); Hematocrit 40.6 % (40-54); Hemoglobin 13.4 g/dL (13.0-16.5); Lymphocyte # 0.75 X10^3/ul (0.83-4.51); Lymphocyte % 16.1 % (19-41); Mean Corpuscular Hgb 31.1 pg (27.0-32.0); Mean Corpuscular Volume 94.2 fL (80-94); Mean Platelet Vol. 9.7 fl (6.2-12.0); Monocyte# 0.46 X10^3/uL; Monocyte% 9.9 % (0-10); NRBC Flagged by Analyzer 0 % (0-5); Platelet Count 169 K/mm3 (150-450); RBC Distribution Width CV 13.2 % (11.6-14.6); RBC Distribution Width SD 45.8 fl (35.1-43.9); Red Blood Count 4.31 M/mm3 (4.6-6.2); White Blood Count 4.7 K/mm3 (4.4-11.0)
== END ==
PROVIDERS: PCP Family Medicine; Visit Provider Radiology Radiation Oncology
DX: C61 Malignant neoplasm of prostate (principal)
CPT/HCPCS: 36415; 85025

== ENCOUNTER 2022-01-11 06:08 | Outpatient (CLI) | payer MEDICARE, BC, SELFPAY ==
[2022-01-11 08:06] LABS: PSA,Total- Diagnostic 0.03 ng/mL (0.0-4.0)
== END 2022-01-11 23:59 | disposition home or self-care (01) ==
LOC: LAB 06:12
PROVIDERS: PCP Family Medicine; Referring Provider Urology; Visit Provider Urology
DX: C61 Malignant neoplasm of prostate (principal)
CPT/HCPCS: 36415; 84153

== ENCOUNTER → 2022-08-10 | Outpatient (CLI) | payer MEDICARE, BC, SELFPAY ==
[2022-08-10 07:45] LABS: PSA,Total- Diagnostic 0.02 ng/mL (0.0-4.0)
== END | disposition home or self-care (01) ==
LOC: LAB 06:26
PROVIDERS: PCP Family Medicine; Referring Provider Registered Nurse; Visit Provider Registered Nurse
DX: C61 Malignant neoplasm of prostate (principal)
CPT/HCPCS: 36415; 84153

== ENCOUNTER → 2022-08-14 | Outpatient (CLI) | payer MEDICARE, BC, SELFPAY ==
[2022-08-14 16:06] LABS: ALB/GLOB Ratio 0.7 RATIO (0.9-2.4); AST(SGOT) 54 U/L (15-37); Alanine Aminotransfer ALT/SGPT 64 U/L (16-61); Alkaline Phosphatase 89 U/L (45-117); Anion Gap 8 (5-15); BUN 14 mg/dL (7-18); BUN/Creat Ratio 19.3 RATIO (10-20); Calcium,Total 8.8 mg/dL (8.5-10.1); Chloride 101 mmol/L (98-107); Cholesterol 179 mg/dL (200); Creatinine, Serum 0.73 mg/dL (0.70-1.30); EST Glomerular Filtration Rate 115 mL/min (>60); Est Glom Filt Rate - Afr Amer 139 mL/min (>60); Globulin 4.1 g/dL (2.2-4.2); Glucose 101 mg/dL (74-106); High Density Lipoprotein 71 mg/dL; Potassium 4.1 mmol/L (3.5-5.1); Protein, Total 7.1 g/dL (6.4-8.2); Sodium Level 136 mmol/L (136-145); Thyroid Stim Hormone (TSH) 2.04 uIU/mL (0.358-3.74); Triglycerides 98 mg/dL; Very Low Density Lipoprotein 20 mg/dL (5-40)
== END | disposition home or self-care (01) ==
LOC: MFPLAB 12:04
PROVIDERS: PCP Family Medicine; Referring Provider Family Medicine; Visit Provider Family Medicine
DX: E11.9 Type 2 diabetes mellitus without complications (principal)
CPT/HCPCS: 36415; 80053; 80061; 84403; 84443

== ENCOUNTER → 2023-02-07 | Outpatient (CLI) | payer MEDICARE, OTHER, SELFPAY ==
[2023-02-07 12:27] LABS: PSA,Total- Diagnostic 0.04 ng/mL (0.0-4.0)
== END | disposition home or self-care (01) ==
PROVIDERS: PCP Family Medicine; Referring Provider Registered Nurse; Visit Provider Registered Nurse
DX: C61 Malignant neoplasm of prostate (principal)
CPT/HCPCS: 36415; 84153

== ENCOUNTER → 2023-08-14 | Outpatient (CLI) | payer MEDICARE, OTHER, SELFPAY ==
[2023-08-14 08:19] LABS: ALB/GLOB Ratio 0.7 RATIO (0.9-2.4); AST(SGOT) 33 U/L (15-37); Alanine Aminotransfer ALT/SGPT 45 U/L (16-61); Albumin, Serum 3.2 g/dL (3.2-5.0); Alkaline Phosphatase 92 U/L (45-117); Anion Gap 5 (5-15); BUN 12 mg/dL (7-18); BUN/Creat Ratio 16.6 RATIO (10-20); Bilirubin, Direct 0.12 mg/dL (0.00-0.30); Calcium,Total 8.7 mg/dL (8.5-10.1); Chloride 107 mmol/L (98-107); Creatinine, Serum 0.72 mg/dL (0.70-1.30); EST Glomerular Filtration Rate 115 mL/min (>60); Est Glom Filt Rate - Afr Amer 139 mL/min (>60); Globulin 4.3 g/dL (2.2-4.2); Glucose 121 mg/dL (74-106); Potassium 3.8 mmol/L (3.5-5.1); Protein, Total 7.5 g/dL (6.4-8.2); Sodium Level 139 mmol/L (136-145)
== END | disposition home or self-care (01) ==
LOC: LAB 07:29
PROVIDERS: PCP Family Medicine; Referring Provider Family Medicine; Visit Provider Family Medicine
DX: R79.89 Other specified abnormal findings of blood chemistry (principal); E11.42 Type 2 diabetes mellitus with diabetic polyneuropathy
CPT/HCPCS: 36415; 80053; 82248; 84403

== ENCOUNTER → 2023-08-16 | Outpatient (CLI) | payer MEDICARE, OTHER, SELFPAY ==
[2023-08-16 11:00] LABS: PSA,Total- Diagnostic 0.04 ng/mL (0.0-4.0)
== END | disposition home or self-care (01) ==
LOC: LAB 09:35
PROVIDERS: PCP Family Medicine; Referring Provider Nurse Practitioner; Visit Provider Nurse Practitioner
DX: C61 Malignant neoplasm of prostate (principal)
CPT/HCPCS: 36415; 84153

== ENCOUNTER → 2023-11-23 | Outpatient (CLI) | payer MEDICARE, OTHER, SELFPAY ==
--- NOTE | 2023-11-23 13:46 | STRESSREP ---
Stress Test Report Date: 11/23/2023 Procedure: Pharmacologic stress nuclear imaging study Indications: Dyspnea Consent: Per the patient Procedure: The patient underwent pharmacologic (Regadenoson 0.4mg ) evaluation with a peak heart rate of 95 beats per minute (62%predicted maximal heart rate) and a peak blood pressure of 140/82 mmHg. The baseline ECG demonstrated normal sinus rhythm. The peak pharmacologic ECG demonstrated no ischemic changes. There were no cardiac dysrhythmias pretest, during pharmacologic infusion, or recovery. There was no complaint of chest discomfort during pharmacologic infusion or recovery. The patient was injected with 14.9 millicuries of technetium 99m Cardiolite and subsequently rest SPECT Cardiolite nuclear imaging was obtained in the horizontal long, vertical long, and short axis views. The patient underwent pharmacologic (Regadenoson) evaluation. The patient was injected with 45.0 millicuries of technetium 99m Cardiolite and subsequently stress SPECT Cardiolite nuclear imaging was obtained in the horizontal long, vertical long, and short axis views. No gated study available. The examination was stopped secondary to completion of protocol. Rest and stress SPECT Cardiolite nuclear imaging status post realignment, normalization, and attenuation correction demonstrate no fixed or reversible perfusion defects. Impression: 1. Pharmacologic (Regadenoson) evaluation 2. Peak pharmacologic ECG with no ischemic changes. 3. There were no cardiac dysrhythmias pretest, during pharmacologic infusion, or recovery. 5. Rest and stress SPECT Cardiolite nuclear imaging demonstrate relative uniform tracer uptake and myocardial perfusion appearing within normal limits. This note was generated with [employer] software. It may contain incorrect words, spelling, and punctuation that were not noted in checking the note before signing.
== END | disposition home or self-care (01) ==
LOC: CVS 06:29
PROVIDERS: PCP Family Medicine; Referring Provider Family Medicine; Visit Provider Family Medicine
DX: R06.00 Dyspnea, unspecified (principal)
CPT/HCPCS: 78452; 93017; A9500; A4216; J2785

== ENCOUNTER → 2024-02-05 | Outpatient (CLI) | payer MEDICARE, OTHER, SELFPAY ==
[2024-02-05 12:37] LABS: PSA,Total- Diagnostic 0.04 ng/mL (0.0-4.0)
[2024-02-10 17:07] LABS: Testosterone, % Free 2.79 % (1.50-4.20); Testosterone, Free 6.22 ng/dL (5.00-21.00); Testosterone, Total 223 ng/dL (264-916)
== END | disposition home or self-care (01) ==
LOC: MFPLAB 09:52
PROVIDERS: PCP Family Medicine; Visit Provider Family Medicine
DX: R79.89 Other specified abnormal findings of blood chemistry (principal); C61 Malignant neoplasm of prostate
CPT/HCPCS: 36415; 84153; 84402; 84403

== ENCOUNTER → 2024-06-24 | Outpatient (CLI) | payer MEDICARE, OTHER, SELFPAY ==
[2024-06-24 12:16] LABS: Anion Gap 6 (5-15); BUN 11 mg/dL (7-18); BUN/Creat Ratio 14.8 RATIO (10-20); Chloride 102 mmol/L (98-107); Creatinine, Serum 0.74 mg/dL (0.70-1.30); EST Glomerular Filtration Rate 111 mL/min (>60); Est Glom Filt Rate - Afr Amer 134 mL/min (>60); Glucose 128 mg/dL (74-106); Potassium 4.2 mmol/L (3.5-5.1); Sodium Level 136 mmol/L (136-145)
== END | disposition home or self-care (01) ==
LOC: MFPLAB 09:57
PROVIDERS: PCP Family Medicine; Visit Provider Family Medicine
DX: R60.0 Localized edema (principal)
CPT/HCPCS: 36415; 80048

== ENCOUNTER → 2024-08-20 | Outpatient (CLI) | payer MEDICARE, OTHER, SELFPAY ==
[2024-08-20 10:18] LABS: PSA,Total- Diagnostic 0.05 ng/mL (0.0-4.0)
== END | disposition home or self-care (01) ==
LOC: LAB 09:32
PROVIDERS: PCP Family Medicine; Referring Provider Urology; Visit Provider Urology
DX: C61 Malignant neoplasm of prostate (principal)
CPT/HCPCS: 36415; 84153

== ENCOUNTER → 2025-02-25 | Outpatient (CLI) | payer MEDICARE, OTHER, SELFPAY ==
[2025-02-25 16:33] LABS: ALB/GLOB Ratio 1.1 RATIO (0.9-2.4); AST(SGOT) 49 U/L (<=37); Alanine Aminotransfer ALT/SGPT 44 U/L (<=46); Alkaline Phosphatase 72 U/L (40-129); Anion Gap 13 (5-15); BUN 11 mg/dL (4-19); BUN/Creat Ratio 17.3 RATIO (10-20); Calcium,Total 9.5 mg/dL (7.6-11.0); Chloride 97 mmol/L (98-108); Cholesterol 176 mg/dL (<=200); Creatinine, Serum 0.66 mg/dL (0.70-1.20); EST Glomerular Filtration Rate 102 (>60); Globulin 3.6 g/dL (2.2-4.2); Glucose 103 mg/dL (70-99); High Density Lipoprotein 61 mg/dL; Low Density Lipoprotein Calc. 94 mg/dL; Protein, Total 7.6 g/dL (5.9-8.4); Sodium Level 134 mmol/L (133-145); Total Bilirubin 0.61 mg/dL (0.00-1.30); Triglycerides 110 mg/dL; Very Low Density Lipoprotein 22 mg/dL (5-40); Vitamin B12 401 pg/mL (180-914); cholesterol:hdl ratio screen 2.91
== END | disposition home or self-care (01) ==
LOC: MFPLAB 11:42
PROVIDERS: PCP Family Medicine; Referring Provider Family Medicine; Visit Provider Family Medicine
DX: E11.42 Type 2 diabetes mellitus with diabetic polyneuropathy (principal)
CPT/HCPCS: 36415; 80053; 80061; 82607; 84402; 84403; 84443

== ENCOUNTER → 2025-11-10 | Outpatient (CLI) | payer MEDICARE, OTHER, SELFPAY ==
[2025-11-10 14:20] LABS: Creatinine, Urine (random) 158.00 mg/dL (39.00-259.00); Microalbumin,Random Urine 42.4 mg/L (<20 mg/L)
== END | disposition home or self-care (01) ==
LOC: LABSPEC 13:15
PROVIDERS: PCP Family Medicine; Referring Provider Family Medicine; Visit Provider Family Medicine
DX: Z00.00 Encounter for general adult medical examination without abnormal findings (principal)
CPT/HCPCS: 82043; 82570